=== PATIENT | male | born 1975 | race Caucasian/White ===

== ENCOUNTER 2017-03-02 22:05 | Emergency (ER) | payer BC ==
[~2017-03-02] VITALS: Ht 182.9 cm; Wt 86.2 kg
--- NOTE | 2017-03-02 22:08 | NUR ---
PATIENT BIB [facility] FOR SY[address] EPISODE. DR. POOLE AT BEDSIDE FOR EVAL.
--- NOTE | 2017-03-02 22:16 | NUR ---
PATIENT STATES, SPOKE WITH NEIGHBOR ABOUT MEDICAL THINGS AND FELT LEGS GIVE OUT, FELL ONTO LEFT SIDE, ABRASION NOTED ON LEFT HAND, RIGHT HAND, NOSE AND CHEEK.
--- NOTE | 2017-03-02 22:50 | NUR ---
PATIENT RETURNED FROM X-RAY.
[2017-03-02 23:11] VITALS: BP 120/68
--- NOTE | 2017-03-02 23:11 | NUR ---
Patient discharged to home in stable conditon. Written and verbal after care instructions given. Patient verbalizes understanding of instructions. ACCOMPANIED BY FAMILY.
== END 2017-03-02 23:12 | disposition home or self-care (01) ==
LOC: ER 22:06
DX: S60.511A Abrasion of right hand, initial encounter (principal); S80.212A Abrasion, left knee, initial encounter; S00.31XA Abrasion of nose, initial encounter; R55 Syncope and collapse; X58.XXXA Exposure to other specified factors, initial encounter; Y93.89 Activity, other specified; Y92.9 Unspecified place or not applicable; Y99.9 Unspecified external cause status
CPT/HCPCS: 70160; 73130; 93005; A4663